=== PATIENT | male | born 1945 | race Caucasian/White ===

== ENCOUNTER 2021-08-31 18:59 | Emergency (ER) | payer MEDICARE ==
[2021-08-31 19:18] VITALS: BP 193/94; PULSE 57
--- NOTE | 2021-08-31 19:30 | EDM.PDOC ---
ED HPI GENERAL MEDICAL PROBLEM - General Chief Complaint: Bite:Animal, Insect Stated Complaint: TICK BITE Time Seen by Provider: 08/31/21 19:08 Source of Information: Reports: Patient History Limitations: Reports: No Limitations - History of Present Illness INITIAL COMMENTS - FREE TEXT/NARRATIVE: Alvin is a 75-year-old male presenting to the ED for evaluation of a tick bite to the posterior left shoulder. The patient was working in the [employer] yesterday and his found a deer tick on his shoulder. She removed it. Overnight the area became more red, swollen, and tender prompting him to come in for evaluation. - Related Data Allergies Allergy/AdvReac Type Severity Reaction Status Date / Time niacin Allergy Cannot Verified 08/31/21 19:15 Remember rofecoxib [From Vioxx] Allergy Cannot Verified 08/31/21 19:15 Remember Home Meds: Home Meds Levothyroxine Sodium [Synthroid] 75 mcg PO ACBREAKFAST 10/29/15 [History] Simvastatin [Zocor] 20 mg PO BEDTIME 10/29/15 [History] Multivitamin [Multi-Vitamin Daily] 1 tab PO DAILY 08/25/21 [History] Past Medical History HEENT History: Reports: Hard of Hearing, Impaired Vision Cardiovascular History: Reports: High Cholesterol Other Musculoskeletal History: left knee pain Neurological History: Reports: None Endocrine/Metabolic History: Reports: Hypothyroidism - Infectious Disease History Infectious Disease History: Reports: Chicken Pox, Measles, Mononucleosis, Mumps - Past Surgical History HEENT Surgical History: Reports: None GI Surgical History: Reports: Appendectomy, Colonoscopy Neurological Surgical History: Reports: Lumbar Spine Musculoskeletal Surgical History: Reports: None Social & Family History - Tobacco Use Tobacco Use Status *Q: Never Tobacco User ED ROS GENERAL - Review of Systems Review Of Systems: See Below Constitutional: Reports: No Symptoms HEENT: Reports: No Symptoms Respiratory: Reports: No Symptoms Cardiovascular: Reports: No Symptoms Endocrine: Reports: No Symptoms GI/Abdominal: Reports: No Symptoms : Reports: No Symptoms Musculoskeletal: Reports: Shoulder Pain (Posterior left shoulder) Skin: Reports: Erythema (A 1 cm posterior left shoulder lesion with a dark center.) Neurological: Reports: No Symptoms Psychiatric: Reports: No Symptoms Hematologic/Lymphatic: Reports: No Symptoms Immunologic: Reports: No Symptoms ED EXAM, ANIMAL BITE - Physical Exam Exam: See Below Exam Limited By: No Limitations General Appearance: Alert, No Apparent Distress Extremities: Normal Inspection, Normal Range of Motion Neurological: Alert, Oriented, Normal Cognition Skin Exam: Warm/Dry, Other (There is a 1 cm area of erythema on the left posterior shoulder with a dark central area. This appears to be retained head of a deer tick. There is no target lesion at this time, however, this is only 24 hours since the tick is been removed.) ED ANIMAL BITE PROCEDURES - I&D Site: Posterior left shoulder Skin Prep: Isopropyl Alcohol (Alcohol) Area Incised With: Needle (21-gauge needle) Drainage: Other (I was able to core out the skin containing the tick head in its entirety. There was no bleeding.) Sterile Dressing: None Complications: No Course - Vital Signs Last Recorded V/S: Last Vital Signs Temp 36.3 C 08/31/21 19:18 Pulse 57 L 08/31/21 19:18 Resp 18 08/31/21 19:18 BP 193/94 H 08/31/21 19:18 Pulse Ox 99 08/31/21 19:18 - Re-Assessments/Exams Free Text/Narrative Re-Assessment/Exam: 08/31/21 19:34 it appears the patient was bit by a deer tick with a retained head for the last 24 hours. He does have an area that is about 1 cm that is erythematous, warm, and tender. We will start him on doxycycline to prophylactically treat for Lyme's as well as the cellulitis. This was sent to the [facility] machine. Indications return to the ED were discussed and patient was discharged in satisfactory condition. Departure - Departure Time of Disposition: 19:27 Disposition: Home, Self-Care 01 Clinical Impression: Tick bite of left shoulder Qualifiers: Encounter type: initial encounter Qualified Code(s): S40.262A - Insect bite (nonvenomous) of left shoulder, initial encounter - Discharge Information Instructions: Tick Bite Information, Adult, [id number] Referrals: Omid Tavarez MD [Primary Care Provider] - Forms: ED Department Discharge Care Plan Goals: You had retained tick head under the skin which I removed using a needle. We wi ll treat you prophylactically for Lyme's disease with doxycycline 100 mg twice daily for 21 days. Sepsis Event Note (ED) - Evaluation Sepsis Screening Result: No Definite Risk - Focused Exam Vital Signs: Vital Signs Temp Pulse Resp BP Pulse Ox 10/17/21 19:18 36.3 C 57 L 18 193/94 H 99 08/31/21 19:17 36.3 C 57 L 18 193/94 H 99 - Problem List & Annotations (1) Tick bite of left shoulder SNOMED Code(s): 65098670 Code(s): S40.262A - INSECT BITE (NONVENOMOUS) OF LEFT SHOULDER, INIT ENCNTR; W57.XXXA - BIT/STUNG BY NONVENOM INSECT & OTH NONVENOM ARTHROPODS, INIT Status: Acute Priority: Low Current Visit: Yes Qualifiers: Encounter type: initial encounter Qualified Code(s): S40.262A - Insect bite (nonvenomous) of left shoulder, initial encounter; W57.XXXA - Bitten or stung by nonvenomous insect and other nonvenomous arthropods, initial encounter - Problem List Review Problem List Initiated/Reviewed/Updated: Yes
== END 2021-08-31 19:46 | disposition home or self-care (01) ==
LOC: JP.ED 18:59
DX: S40.262A Insect bite (nonvenomous) of left shoulder, initial encounter (principal); L02.414 Cutaneous abscess of left upper limb; E78.00 Pure hypercholesterolemia, unspecified; E03.9 Hypothyroidism, unspecified; Z88.1 Allergy status to other antibiotic agents; Z88.8 Allergy status to other drugs, medicaments and biological substances; Z79.899 Other long term (current) drug therapy; W57.XXXA Bitten or stung by nonvenomous insect and other nonvenomous arthropods, initial encounter
CPT/HCPCS: 10060; 99282-25

== ENCOUNTER 2021-09-15 07:06 | Day surgery (SDC) | payer MEDICARE ==
[2021-09-15] MEDS ORDERED: Dexamethasone 4 MG/ML SDV ONE (07:42)
[2021-09-15] MEDS ORDERED: fentaNYL 100 MCG/2 ML SDV ONE ×2 (07:42→09:13)
[2021-09-15] MEDS ORDERED: Ondansetron 4 MG/2 ML SDV ONE (07:42)
[2021-09-15] MEDS ORDERED: Midazolam 1 MG/ML 2 ML SDV ONE (07:42)
[2021-09-15] MEDS ORDERED: Propofol 200 MG/20 ML SDV ONE (07:42)
[2021-09-15] MEDS: Nozin Nasal Sanitizer NASBOTH ONE (07:55)
[2021-09-15] MEDS: Lactated Ringers 1,000 ML IV SCH (07:57)
[2021-09-15] MEDS: ceFAZolin 2 GM in Premix Bag 1 BAG IV ONE (08:45)
[2021-09-15] MEDS ORDERED: Ketorolac 30 MG/ML SDV ONE (09:17)
[2021-09-15] MEDS: Bupivacaine 0.5% 50 ML MDV ONE (09:20)
[2021-09-15 11:16] VITALS: BP 158/87; PULSE 49
--- NOTE | 2021-09-17 15:25 | OR ---
DATE OF PROCEDURE: 09/15/2021 SURGEON: Hal Solorzano MD PREOPERATIVE DIAGNOSIS: Medial meniscus tear, left knee. POSTOPERATIVE DIAGNOSES: 1. Medial meniscus tear, left knee, complex. 2. Chondromalacia, grade 4, medial tibial plateau. PROCEDURE PERFORMED: Arthroscopy of left knee with partial medial meniscectomy. ANESTHESIA: General. INDICATIONS: Mr. Mckeon is a 75-year-old gentleman with a history of rather sudden onset of medial knee pain while running. Examination and imaging are consistent with a complex tear of the medial meniscus. He has no significant degenerative changes of the knee. He now presents for arthroscopic partial meniscectomy. The risks, benefits, and potential complications of the procedure were discussed. DESCRIPTION OF PROCEDURE: After adequate anesthesia was obtained, the patient was placed supine with a tourniquet about the upper thigh. The leg was prepped and draped in a sterile fashion. Standard anterior, inferior, medial, and lateral portals were established. The patellofemoral joint was inspected which revealed some very minor grade 1, early 2 changes of the patella. The trochlear groove was intact. Moving into the medial compartment, articular surface of the femoral condyle was intact. A complex tear of the medial meniscus was identified with a cleavage tear into the posterior horn. The tattered portion of the main tear in the midbody was debrided with a combination of basket punch and shaver. The smaller cleavage portion into the posterior horn was debrided back to a stable margin. All loose fragments were removed. Once the fragmented portion of the tear was debrided, a small area of full-thickness articular cartilage loss was visible on the tibial plateau. This measured approximately 3 x 4 mm. The rest of the knee was evaluated. Intercondylar notch revealed no abnormalities with intact ACL and PCL. Lateral compartment revealed intact meniscus and articular cartilage. No other abnormalities were identified. Knee was drained. Scope was withdrawn. Port sites were closed with 3-0 Monocryl, and Steri-Strips were applied. The port sites in the knee were infiltrated with 0.5% Marcaine, and a sterile dressing was applied. The patient tolerated the procedure very well. There were no complications. He was taken from the operating room in stable condition. Hal Solorzano MD /[id number] [facility]
== END 2021-09-15 11:19 | disposition home or self-care (01) ==
LOC: JP.SDS 07:06
PROVIDERS: ATTEND Specialist
DX: S83.232A Complex tear of medial meniscus, current injury, left knee, initial encounter (principal); M94.262 Chondromalacia, left knee; E78.5 Hyperlipidemia, unspecified; Z88.8 Allergy status to other drugs, medicaments and biological substances; Z98.890 Other specified postprocedural states
CPT/HCPCS: 36415; 80053; A9270-GY; J0690; J1100; J1885; J2250; J2405; J2704; J3010; J3490; J7120

== ENCOUNTER 2022-02-09 18:37 | Emergency (ER) | payer MEDICARE ==
[2022-02-09 18:57] VITALS: PULSE 46
[2022-02-09] MEDS ORDERED: Sodium Chloride 0.9% 1,000 ML IV SCH (20:00)
[2022-02-09 20:48] VITALS: BP 171/74
== END 2022-02-09 21:21 | disposition home or self-care (01) ==
LOC: JP.ED 18:37
DX: R00.1 Bradycardia, unspecified (principal); E86.0 Dehydration; E78.00 Pure hypercholesterolemia, unspecified; E03.9 Hypothyroidism, unspecified; Z88.1 Allergy status to other antibiotic agents; Z88.8 Allergy status to other drugs, medicaments and biological substances; Z79.899 Other long term (current) drug therapy
CPT/HCPCS: 36415; 80053; 81001; 84443; 84484; 85025; 93005; 93010; 99283; 99284-25; J7030

== ENCOUNTER 2023-11-06 11:30 | Emergency (ER) | payer MEDICARE ==
[2023-11-06] MEDS ORDERED: Sodium Chloride 0.9% 10 ML Syringe FLUSH PRN (12:40)
[2023-11-06 12:51] LABS: BASOPHILS ABSOLUTE AUTO 0.03 K/uL (0.00-0.10); BASOPHILS PERCENT AUTO 0.5 % (0.1-1.3); EOSINOPHILS ABSOLUTE AUTO 0.22 K/uL (0.00-0.40); EOSINOPHILS PERCENT AUTO 3.9 % (0.0-5.4); HEMATOCRIT 43.4 % (38.4-49.7); HEMOGLOBIN 14.9 g/dL (12.9-16.9); IMMATURE GRAN PERCENT AUTO 0.4 % (0.0-0.7); LYMPHOCYTES ABSOLUTE AUTO 1.36 K/uL (0.8-3.3); LYMPHOCYTES PERCENT AUTO 23.8 % (11.4-47.7); MEAN CORPUSCULAR HEMOGLOBIN 29.4 pg (31.6-35.5); MEAN CORPUSCULAR HGB CONC 34.3 g/dL (31.6-35.5); MEAN CORPUSCULAR VOLUME 85.8 fL (81.4-99.0); MONOCYTES ABSOLUTE AUTO 0.81 K/uL (0.20-0.90); MONOCYTES PERCENT AUTO 14.2 % (3.3-12.6); NEUTROPHILS ABSOLUTE AUTO 3.27 K/uL (1.0-7.6); NEUTROPHILS PERCENT AUTO 57.2 % (40.0-78.1); PLATELET COUNT,PLT 212 K/uL (130-375); RED BLOOD CELL COUNT 5.06 M/uL (4.14-5.76); WHITE BLOOD CELL COUNT,WBC 5.7 K/uL (3.2-11.0)
[2023-11-06 12:53] LABS: IMMATURE GRAN ABSOLUTE AUTO 0.02 K/uL (0.00-0.23)
[2023-11-06 13:04] VITALS: BP 148/82; PULSE 58
[2023-11-06 13:09] LABS: INR 1.2; PROTHROMBIN TIME 11.8 sec (9.2-10.6); PTT,PARTIAL THROMBOPLSTIN TIME 28.2 sec (21.8-27.3)
[2023-11-06 13:16] LABS: ALBUMIN 3.5 g/dL (3.4-5.0); BLOOD UREA NITROGEN,BUN 18 mg/dL (7-18); CALCIUM 8.5 mg/dL (8.5-10.1); CARBON DIOXIDE,CO2 30 mmol/L (21-32); CHLORIDE,CL 98 mmol/L (100-108); CREATININE 1.1 mg/dL (0.8-1.3); EST CRCL DRUG DOSING (CG) 50.15 mL/min; ESTIMATED GFR 68 mL/min (>60); GLUCOSE RANDOM 74 mg/dL (74-106); POTASSIUM,K 4.9 mmol/L (3.6-5.2); SODIUM,NA 133 mmol/L (140-148)
[2023-11-06 13:17] LABS: ALANINE AMINOTRANSFERASE,ALT 17 U/L (12-78); ALKALINE PHOSPHATASE 80 U/L (46-116); ANION GAP 9.9 mmol/L (5.0-14.0); ASPARTATE AMNIOTRANSFERASE,AST 25 U/L (15-37); BILIRUBIN TOTAL 0.5 mg/dL (0.2-1.0)
[2023-11-06] MEDS ORDERED: Sodium Chloride 0.9% 50 ML IV ONE (14:14)
[2023-11-06] MEDS ORDERED: Iopamidol 755 Mg/ML 100 ML Bottle IV SCH (14:15)
== END 2023-11-06 15:32 | disposition home or self-care (01) ==
LOC: JP.ED 11:30
DX: R26.81 Unsteadiness on feet (principal); I25.10 Atherosclerotic heart disease of native coronary artery without angina pectoris; I10 Essential (primary) hypertension; E78.00 Pure hypercholesterolemia, unspecified; E03.9 Hypothyroidism, unspecified; Z88.1 Allergy status to other antibiotic agents; Z79.899 Other long term (current) drug therapy; Z79.02 Long term (current) use of antithrombotics/antiplatelets
CPT/HCPCS: 36415; 70450; 70496; 70498; 76377; 80053; 84484; 85025; 85610; 85730; 93005; 99284; J3490; Q9967

== ENCOUNTER 2024-09-23 21:21 | Emergency (ER) | payer MEDICARE ==
[2024-09-23 22:34] LABS: BASOPHILS ABSOLUTE AUTO 0.03 K/uL (0.00-0.10); BASOPHILS PERCENT AUTO 0.5 % (0.1-1.3); EOSINOPHILS ABSOLUTE AUTO 0.14 K/uL (0.00-0.40); EOSINOPHILS PERCENT AUTO 2.4 % (0.0-5.4); HEMOGLOBIN 14.6 g/dL (12.9-16.9); IMMATURE GRAN PERCENT AUTO 0.3 % (0.0-0.7); LYMPHOCYTES ABSOLUTE AUTO 0.92 K/uL (0.8-3.3); LYMPHOCYTES PERCENT AUTO 15.9 % (11.4-47.7); MEAN CORPUSCULAR HEMOGLOBIN 30.7 pg (31.6-35.5); MEAN CORPUSCULAR HGB CONC 34.8 g/dL (31.6-35.5); MEAN CORPUSCULAR VOLUME 88.2 fL (81.4-99.0); MONOCYTES ABSOLUTE AUTO 0.92 K/uL (0.20-0.90); MONOCYTES PERCENT AUTO 15.9 % (3.3-12.6); NEUTROPHILS ABSOLUTE AUTO 3.76 K/uL (1.0-7.6); PLATELET COUNT,PLT 182 K/uL (130-375); RED BLOOD CELL COUNT 4.76 M/uL (4.14-5.76); WHITE BLOOD CELL COUNT,WBC 5.8 K/uL (3.2-11.0)
[2024-09-23 22:37] LABS: IMMATURE GRAN ABSOLUTE AUTO 0.02 K/uL (0.00-0.23)
[2024-09-23 22:51] LABS: CALCIUM 9.1 mg/dL (8.5-10.1); CREATININE 1.3 mg/dL (0.8-1.3); EST CRCL DRUG DOSING (CG) 41.58 mL/min; POTASSIUM,K 3.5 mmol/L (3.6-5.2); TROPONIN I HIGH SENSITIVITY 8.3 pg/mL (<=60.3)
[2024-09-23 22:53] LABS: ANION GAP 12.5 mmol/L (5.0-14.0)
[2024-09-23 23:42] VITALS: BP 152/81; PULSE 60
== END 2024-09-23 23:40 | disposition home or self-care (01) ==
LOC: JP.ED 21:21
DX: R55 Syncope and collapse (principal); I25.10 Atherosclerotic heart disease of native coronary artery without angina pectoris; E78.00 Pure hypercholesterolemia, unspecified; I10 Essential (primary) hypertension; E03.9 Hypothyroidism, unspecified; Z95.5 Presence of coronary angioplasty implant and graft; Z90.49 Acquired absence of other specified parts of digestive tract; Z79.82 Long term (current) use of aspirin; Z79.899 Other long term (current) drug therapy; Z88.3 Allergy status to other anti-infective agents; Z88.8 Allergy status to other drugs, medicaments and biological substances
CPT/HCPCS: 36415; 80048; 84484; 85025; 85379; 93005; 99284